=== PATIENT | male | born 1985 | race African-American/Black ===

== ENCOUNTER 2021-06-28 09:47 | Outpatient (CLI) | payer OTHER, SELFPAY ==
--- NOTE | 2021-06-28 | ECHO_ITS ---
Patient Info Name: Tori Wood Age: 36 years : 1985 Gender: Male Ht: 71 in Wt: 310 lbs BSA: 2.72 m2 HR: 72 bpm BP: 141 / 99 mmHg Technical Quality: Good Exam Date: 06/28/2021 10:10 AM Exam Location: [facility] Patient Status: Outpatient Admit Date: 06/28/2021 Staff Ordering Physician: Dru, Bessie FARLEY Voice And Data Technician: Neena Anglin RDCS Attending Provider: Dru, Bessie FARLEY Exam Type: CA echo doppler color flow Study Info Indications R94.31 - Abnormal electrocardiogram ECG EKG Complete two-dimensional, color flow and Doppler transthoracic echocardiogram is performed. Summary 1. Complete two-dimensional, color flow and Doppler transthoracic echocardiogram is performed. 2. Left ventricular chamber dimension is normal. 3. Left ventricular systolic function is normal, estimated at 60-65%. 4. The left ventricular diastolic function is normal. 5. E/e' 7 is not elevated. 6. No pulmonary hypertension, estimated pulmonary arterial systolic pressure is 22 mmHg. Left Ventricle E/e' 7 is not elevated. Left ventricular chamber dimension is normal. Left ventricular systolic function is normal, estimated at 60-65%. The left ventricular diastolic function is normal. Right Ventricle Right ventricular chamber dimension is normal. Right ventricular systolic function is normal. Left Atria Left atrial chamber dimension is normal. Right Atria Right atrial chamber dimension is normal. Aortic Valve The aortic valve is trileaflet. There is no aortic valve stenosis. There is no aortic valve regurgitation. Pulmonic Valve There is no pulmonic regurgitation. Mitral Valve There is no mitral valve stenosis. There is no mitral valve regurgitation. Tricuspid Valve There is no tricuspid valve regurgitation. No pulmonary hypertension, estimated pulmonary arterial systolic pressure is 22 mmHg. Pericardium/Pleural There is no pericardial effusion. Inferior Vena Cava Normal inferior vena cava with >50% collapse upon inspiration consistent with normal right atrial pressure, 5 mmHg. Aorta The aortic root size at the sinus of Valsalva is normal. Left Ventricular Outflow Tract Name Value Normal LVOT 2D LVOT Diameter 2.1 cm LVOT Doppler LVOT Peak Gradient 4 mmHg LVOT Mean Gradient 2 mmHg LVOT VTI 18 cm LVOT VTI/AV VTI Ratio 0.9 LVOT Stroke Volume 60 ml LVOT CO 3.9 l/min LVOT CI 1.4 l/min/m2 Pulmonic Valve Name Value Normal RVOT Doppler RVOT Peak Gradient 1 mmHg PV Doppler PV Peak Gradient 3 mm
== END 2021-06-28 09:48 | disposition home or self-care (01) ==
LOC: ANHCARD 09:50
PROVIDERS: PCP Nurse Practitioner Family; Visit Provider Nurse Practitioner Family
DX: R94.31 Abnormal electrocardiogram [ECG] [EKG] (principal)
CPT/HCPCS: 93306